=== PATIENT | male | born 1995 | race Caucasian/White ===

== ENCOUNTER 2017-01-28 23:43 | Emergency (ER) | payer OTHER ==
[2017-01-28 23:51] VITALS: BP 136/82; PULSE 89; RESP 20; TEMP 99
[2017-01-29] MEDS ORDERED: IBUPROFEN 800 MG TAB PO STA (00:11)
--- NOTE | 2017-01-29 00:30 | ED ---
Skin/Abscess/FB HPI - General Chief complaint: Skin/Abscess/Foreign Body Stated complaint: hand pain Time Seen by Provider: 01/28/17 23:55 Source: patient, RN notes reviewed, old records reviewed Mode of arrival: ambulatory Limitations: no limitations - History of Present Illness Initial comments: Patient is a 21 year old male with chief complaint of a area of redness on his hand for 2 days. Patient reports on Sunday he had a pieve of fiberglass or splinter go into the dorsum of the left hand. He states that over the pst day it became red and warm. Patient states he went to [facility] and was treated today with keflex. He took 2 of the antibiotics today so far. He was told if the redness spread, that he needed to return to be seen. Patient states over the past few hours the redness extended one centimeter from the original line. Patient states he wanted a seocnd opionion. Denies any fever or chills. He denies decreased range of motiong of the hand. Patient is right handed. - Related Data Previous Rx's Medication Instructions Recorded Ibuprofen [Motrin] 800 mg PO Q6HR PRN #20 tab 01/29/17 Allergies Allergy/AdvReac Type Severity Reaction Status Date / Time No Known Allergies Allergy Verified 01/28/17 23:51 Review of Systems ROS Statement: Those systems with pertinent positive or pertinent negative responses have been documented in the HPI. ROS Other: All systems not noted in ROS Statement are negative. Past Medical History Past Medical History: No Reported History History of Any Multi-Drug Resistant Organisms: None Reported Past Surgical History: Adenoidectomy, Tonsillectomy Past Psychological History: No Psychological Hx Reported Smoking Status: Never smoker Past Alcohol Use History: None Reported Past Drug Use History: None Reported General Exam - General Exam Comments Initial Comments: Well appearing 21 year old male, no distress. Limitations: no limitations General appearance: alert, in no apparent distress Head exam: Present: atraumatic, normocephalic, normal inspection Eye exam: Present: normal appearance, PERRL, EOMI. Absent: scleral icterus, conjunctival injection, periorbital swelling ENT exam: Present: normal exam, mucous membranes moist Neck exam: Present: normal inspection. Absent: tenderness, meningismus, lymphadenopathy Respiratory exam: Present: normal lung sounds bilaterally. Absent: respiratory distress, wheezes, rales, rhonchi, stridor Cardiovascular Exam: Present: regular rate, normal rhythm, normal heart sounds. Absent: systolic murmur, diastolic murmur, rubs, gallop, clicks GI/Abdominal exam: Present: soft, normal bowel sounds. Absent: distended, tenderness, guarding, rebound, rigid Extremities exam: Present: normal inspection, full ROM, normal capillary refill. Absent: tenderness, pedal edema, joint swelling, calf tenderness Left Forearm Wrist exam: Present: normal inspection, full ROM Hand Wrist exam: Present: normal inspection, full ROM (over area of erythema), tenderness, erythema (4cm circular area of erythema over dorsum of hand. ranges from first to 3rd metacarpal. ) Neuro motor exam: Present: wrist extension intact, thumb opposition intact, thumb IP flexion intact, thumb adduction intact Vascular: Present: normal capillary refill Back exam: Present: normal inspection Neurological exam: Present: alert, oriented X3, CN II-XII intact Psychiatric exam: Present: normal affect, normal mood Skin exam: Present: warm, dry, intact, normal color. Absent: rash Course Vital Signs 01/28/17 23:49 Temperature 99 F Pulse Rate 89 Respiratory 20 Rate Blood Pressure 136/82 O2 Sat by Pulse 98 Oximetry Medical Decision Making - Medical Decision Making Patient is a 21 year old male with chief complaint of a area of redness on his hand for 2 days. Patient reports on Sunday he had a pieve of fiberglass or splinter go into the dorsum of the left hand. He states that over the pst day it became red and warm. Patient states he went to [facility] and was treated today with keflex. He took 2 of the antibiotics today so far. He was told if the redness spread, that he needed to return to be seen. Patient states over the past few hours the redness extended one centimeter from the original line. There is no abscess to be drained, no fver at this time. Patient erythema is slightly over original line. Patient does not meet failed out patient treatment as he has started antibiotics today. Patient will be discharged home and advised to take motrin, elevate exttremity and apply ice over it. Paitnet understands treatment plan and will comply. Disposition Clinical Impression: Cellulitis of left hand Disposition: HOME SELF-CARE Condition: Good Instructions: Cellulitis (ED) Additional Instructions: Continue to monitor the area of redness. Apply ice over it. His complete entire briefly prescribed antibiotic prescription. Return to emergency Department if any alarming signs or symptoms occur. If the spread patient is advised to be reevaluated. Prescriptions: Ibuprofen [Motrin] 800 mg PO Q6HR PRN #20 tab PRN Reason: Pain Referrals: Christina Rees MD [STAFF PHYSICIAN] - 1-2 days Time of Disposition: 00:28
== END 2017-01-29 00:38 | disposition home or self-care (01) ==
LOC: EC 23:43
DX: L03.114 Cellulitis of left upper limb (principal)
CPT/HCPCS: 99283

== ENCOUNTER 2017-02-02 01:05 | Inpatient (IN) | payer OTHER ==
[2017-02-02] MEDS ORDERED: SODIUM CHLORIDE 0.9% 1,000 ML IV STA (01:56)
[2017-02-02 02:47] LABS: Basophils % (A) 1 %; CH 29.4; CHCM 34.6; Eosinophils # (A) 0.2 k/uL (0-0.7); Eosinophils % (A) 4 %; HDW 2.81; HGB 15.6 gm/dL (13.0-17.5); Luc % (Auto) 5; Lymphocytes # (A) 2.5 k/uL (1.0-4.8); Lymphocytes % (A) 37 %; MCH 29.6 pg (25.0-35.0); MCHC 34.8 g/dL (31.0-37.0); MCV 85.2 fL (80.0-100.0); Mean Platelet Volume 7.3; Monocytes # (A) 0.6 k/uL (0-1.0); Monocytes % (A) 8 %; Neutrophils # (A) 3.1 k/uL (1.3-7.7); Neutrophils % (A) 46 %; RBC 5.28 m/uL (4.30-5.90); RDW 12.1 % (11.5-15.5); WBC 6.7 k/uL (3.8-10.6); WBC (Perox) 6.89
[2017-02-02 03:00] LABS: ALT 37 U/L (21-72); AST 16 U/L (17-59); Alkaline Phosphatase 97 U/L (38-126); Anion Gap 10 mmol/L; Blood Urea Nitrogen 20 mg/dL (9-20); C Reactive Protein 16.8 mg/L (<10.0); Calcium 9.3 mg/dL (8.4-10.2); Carbon Dioxide 28 mmol/L (22-30); Chloride 105 mmol/L (98-107); Glucose 92 mg/dL (74-99); Non-African American GFR(MDRD) >60 (>60 ml/min/1.73 sqM); Potassium 4.5 mmol/L (3.5-5.1); Sodium 143 mmol/L (137-145); Total Bilirubin 0.4 mg/dL (0.2-1.3); Total Protein 6.9 g/dL (6.3-8.2)
[2017-02-02] MEDS ORDERED: ACETAMINOPHEN TAB 325 MG TAB PO PRN (03:23)
[2017-02-02] MEDS ORDERED: NALOXONE 0.4 MG/ML 1 ML VIAL IV PRN (03:23)
[2017-02-02] MEDS ORDERED: ONDANSETRON 4 MG/2 ML VIAL IVP PRN (03:23)
--- NOTE | 2017-02-02 03:28 | ED ---
Upper Extremity HPI - General Source: patient, RN notes reviewed, old records reviewed Mode of arrival: ambulatory Limitations: no limitations <Ashleigh Mata - Last Filed: 02/02/17 03:25> <Nicholas Llanos - Last Filed: 02/02/17 08:27> - General Chief Complaint: Extremity Injury, Upper Stated Complaint: skin infection Time Seen by Provider: 02/02/17 01:18 - History of Present Illness Initial Comments: 21-year-old male presents emergency Department what appears to be a left hand cellulitis. Patient originally started with this infection last Sunday when he got a microfibrillar in his hand. The patient has been on Keflex since last Sunday however he is increased redness and swelling to the area. Patient has been to [facility] 2-3 times for this since the original injury. Patient went tonight he was given Vanco and Zosyn around 10:00 02/01/2017. They did end up discharging him and told him to return if it worsened. He states he continues to have increased swelling and redness to the hand so she was concerned. Patient states that it seems to be getting worse than it was even a day ago. Patient states that he has no other symptoms that this started. Patient denies any fever.Patient denies any recent fever, chills, shortness of breath, chest pain, back pain, abdominal pain, nausea vomiting, numbness or tingling, dysuria or hematuria, constipation or diarrhea, headaches or visual changes, or any other current symptoms. (Ashleigh Mata) - Related Data Home Medications Medication Instructions Recorded Confirmed Amoxic-Pot Clav 875-125Mg 1 tab PO Q12HR 02/02/17 02/02/17 [Augmentin 875-125] Clindamycin [Cleocin] 150 mg PO Q8HR 02/02/17 02/02/17 Previous Rx's Medication Instructions Recorded Ibuprofen [Motrin] 800 mg PO Q6HR PRN #20 tab 01/29/17 Allergies Allergy/AdvReac Type Severity Reaction Status Date / Time No Known Allergies Allergy Verified 02/02/17 07:55 Review of Systems ROS Other: All systems not noted in ROS Statement are negative. <Ashleigh Mata - Last Filed: 02/02/17 03:25> ROS Other: All systems not noted in ROS Statement are negative. <Nicholas Llanos - Last Filed: 02/02/17 08:27> ROS Statement: Those systems with pertinent positive or pertinent negative responses have been documented in the HPI. Past Medical History Past Medical History: No Reported History History of Any Multi-Drug Resistant Organisms: None Reported Past Surgical History: Adenoidectomy, Tonsillectomy Past Psychological History: No Psychological Hx Reported Smoking Status: Never smoker Past Alcohol Use History: None Reported Past Drug Use History: None Reported <Ashleigh Mata - Last Filed: 02/02/17 03:25> General Exam Limitations: no limitations <Ashleigh Mata - Last Filed: 02/02/17 03:25> <Nicholas Llanos - Last Filed: 02/02/17 08:27> - General Exam Comments Initial Comments: General: The patient is awake and alert, in no distress, and does not appear acutely ill. Neck: The neck is supple, there is no tenderness. Cardiovascular: There is a regular rate and rhythm. No murmur, rub or gallop is appreciated. Respiratory: Lungs are clear to auscultation, respirations are non-labored, breath sounds are equal. No wheezes, stridor, rales, or rhonchi. Musculoskeletal: Sensation intact with 2+ pulses. Left upper joint. Patient has swelling to the left hand with associated erythema. Patient does appear to have an area of abscess that does appear to have been drinking and to the left hand as well. There does appear to be some redness extending up to the left wrist. Patient's range of motion of the left elbow. Neurological: CN II-XII intact, There are no obvious motor or sensory deficits. Coordination appears grossly intact. Speech is normal. Skin: Skin is warm and dry and no rashes or lesions are noted. Psychiatric: Normal mood and affect. (Ashleigh Mata) Medical Decision Making - Lab Data Result diagrams: 02/02/17 02:34 02/02/17 02:34 <Ashleigh Mata - Last Filed: 02/02/17 03:25> - Lab Data Result diagrams: 02/02/17 02:34 02/02/17 02:34 <Nicholas Llanos - Last Filed: 02/02/17 08:27> - Medical Decision Making 21-year-old male presents for appears the left hand sialitis that has failed out patient treatment. At this time patient was not given diuretics due to his recent dose at 10:00. We will start him on Vanco for pharmacy to dose. We discussed Motrin Tylenol for pain control. We did discuss that he will be admitted to on-call physician with Dr. Licona The patient isn't given the plan all questions have been answered. (Ashleigh aMta) I saw this patient in conjunction with the physician assistant terminal manager. I performed independent history and physical exam. Agree with case management. (Nicholas Llanos) - Lab Data Lab Results 02/02/17 02/02/17 02/02/17 Range/Units 02:34 02:34 02:34 WBC 6.7 (3.8-10.6) k/uL RBC 5.28 (4.30-5.90) m/uL Hgb 15.6 (13.0-17.5) gm/dL Hct 45.0 (39.0-53.0) % MCV 85.2 (80.0-100.0) fL MCH 29.6 (25.0-35.0) pg MCHC 34.8 (31.0-37.0) g/dL RDW 12.1 (11.5-15.5) % Plt Count 198 (150-450) k/uL Neutrophils % 46 % Lymphocytes % 37 % Monocytes % 8 % Eosinophils % 4 % Basophils % 1 % Neutrophils # 3.1 (1.3-7.7) k/uL Lymphocytes # 2.5 (1.0-4.8) k/uL Monocytes # 0.6 (0-1.0) k/uL Eosinophils # 0.2 (0-0.7) k/uL Basophils # 0.0 (0-0.2) k/uL Sodium 143 (137-145) mmol/L Potassium 4.5 (3.5-5.1) mmol/L Chloride 105 (98-107) mmol/L Carbon Dioxide 28 (22-30) mmol/L Anion Gap 10 mmol/L BUN 20 (9-20) mg/dL Creatinine 0.70 (0.66-1.25) mg/dL Est GFR (MDRD) Af Amer >60 (>60 ml/min/1.73 sqM) Est GFR (MDRD) Non-Af >60 (>60 ml/min/1.73 sqM) Glucose 92 (74-99) mg/dL Plasma Lactic Acid Costa 1.0 (0.7-2.0) mmol/L Calcium 9.3 (8.4-10.2) mg/dL Total Bilirubin 0.4 (0.2-1.3) mg/dL AST 16 L (17-59) U/L ALT 37 (21-72) U/L Alkaline Phosphatase 97 (38-126) U/L C-Reactive Protein 16.8 H (<10.0) mg/L Total Protein 6.9 (6.3-8.2) g/dL Albumin 4.0 (3.5-5.0) g/dL Disposition Time of Disposition: 03:28 Decision Date: 02/02/17 Decision Time: 03:28 <Ashleigh Mata - Last Filed: 02/02/17 03:25> <Nicholas Llanos - Last Filed: 02/02/17 08:27> Clinical Impression: Cellulitis of left hand, Failure of outpatient treatment Disposition: ADMITTED IP TO THIS HOSP Condition: Stable
[2017-02-02] MEDS ORDERED: IV VANCOMYCIN PER PHARMACY 1 EACH MISC MISCELLANE PRN (03:38)
[2017-02-02] MEDS: IBUPROFEN 400 MG TAB PO PRN ×3 (03:43→19:29)
[2017-02-02] MEDS ORDERED: VANCOMYCIN 1,500 MG in SODIUM CHLORIDE 0.9% 250 ML IVPB ONE (04:00)
[2017-02-02 04:23] VITALS: BMI 26.7
--- NOTE | 2017-02-02 04:26 | XR ---
EXAM: XR Left Hand Complete, 3 or More Views. CLINICAL HISTORY: Reason: Pain TECHNIQUE: Frontal, lateral and oblique views of the left hand. COMPARISON: No relevant prior studies available. FINDINGS: Bones/joints: No acute fracture. No dislocation. Soft tissues: Suspected soft tissue swelling. No radiopaque foreign body. IMPRESSION: Suspected soft tissue swelling
[2017-02-02] MEDS: SODIUM CHLORIDE 0.9% 1,000 ML IV SCH ×3 (04:43→20:44)
[2017-02-02] MEDS: VANCOMYCIN 1,500 MG in SODIUM CHLORIDE 0.9% 250 ML IVPB SCH ×2 (12:31→20:43)
--- NOTE | 2017-02-02 13:13 | HP ---
DATE OF ADMISSION: Patient is a 21-year-old pleasant gentleman who came in left hand cellulitis, was originally with Keflex followed by clindamycin. Patient was seen twice in other ER and patient at one point of time had a drainage of the abscess in the left hand. Patient's left hand is significantly swollen with redness and there is ( ) of infection. No significant abscess is appreciable on the clinical exam. Patient's redness and localized of temperature did improve apparently as per the patient. Patient does not have any left upper limb, lymphadenopathy. Patient is started vancomycin. Apparently his symptoms started about a week ago after he injured his hand with a sharp object, which he removed it by himself, which happened at work. Patient denied any IV drug use. REVIEW OF SYSTEMS: CONSTITUTIONAL: No fever, no malaise, no fatigue. HEENT: No recent visual problems or hearing problems. Denied any sore throat. CARDIOVASCULAR: No chest pain, orthopnea, PND, no palpitations, no syncope. PULMONARY: No shortness of breath, no cough, no hemoptysis. GASTROINTESTINAL: No diarrhea, no nausea, no vomiting, no abdominal pain. Normoactive bowel sounds. NEUROLOGICAL: No headaches, no weakness, no numbness. HEMATOLOGICAL: Denies any bleeding or petechiae. GENITOURINARY: Denies any burning micturition, frequency, or urgency. MUSCULOSKELETAL/RHEUMATOLOGICAL: As described in HPI. ENDOCRINE: Denies any polyuria or polydipsia. The rest of the 14 point review of systems is negative. Home medications include: 1. Augmentin. 2. Clindamycin. 3. Ibuprofen. ALLERGIES: No known drug allergies. PAST MEDICAL HISTORY: Adenoidectomy, tonsillectomy. SOCIAL HISTORY: Denied any smoking, alcohol abuse or drug abuse. FAMILY HISTORY: Denied any family history of hypertension or diabetes mellitus in the family. On physical examination, temperature 97.4, pulse of 70, respiratory rate of 16, blood pressure is 101/51, saturating at 99% on room air. GENERAL: The patient is alert and oriented x3, not in any acute distress. Well developed, well nourished. HEENT: Pupils are round and equally reacting to light. EOMI. No scleral icterus. No conjunctival pallor. Normocephalic, atraumatic. No pharyngeal erythema. No thyromegaly. CARDIOVASCULAR: S1 and S2 present. No murmurs, rubs, or gallops. PULMONARY: Chest is clear to auscultation, no wheezing or crackles. ABDOMEN: Soft, nontender, nondistended, normoactive bowel sounds. No palpable organomegaly. MUSCULOSKELETAL: Patient's left hand is completely swollen. There is a ( ) of infection with wound with recent abscess that was drained and another completely healed scratch from the dorsum of the left hand. There is a little bit of redness and localized of temperature completely swollen left hand and patient unable to flex his fingers completely because of the swelling. EXTREMITIES: No cyanosis, clubbing, or pedal edema. NEUROLOGICAL: Gross neurological examination did not reveal any focal deficits. SKIN: No rashes. LABORATORY DATA: CBC, CMP, essentially within normal limits. Lactic acid is 1.0. ASSESSMENT AND PLAN: Left hand cellulitis with recent abscess that was drained. Wound cultures were obtained at the other hospital. Will obtained those wound cultures. Will continue with vancomycin. Patient is on ibuprofen for inflammation, which will be continued. Patient is on IV fluids at 100 mL per hour, which will be continued.
[2017-02-02 15:58] VITALS: RESP 18
[2017-02-03] MEDS ORDERED: VANCOMYCIN TROUGH DUE 1 EACH MISC MISCELLANE ONE (04:00)
[2017-02-03 04:51] LABS: ALT 35 U/L (21-72); AST 18 U/L (17-59); Alkaline Phosphatase 93 U/L (38-126); Anion Gap 8 mmol/L; Blood Urea Nitrogen 14 mg/dL (9-20); Calcium 9.3 mg/dL (8.4-10.2); Carbon Dioxide 28 mmol/L (22-30); Chloride 106 mmol/L (98-107); Glucose 102 mg/dL (74-99); Non-African American GFR(MDRD) >60 (>60 ml/min/1.73 sqM); Sodium 142 mmol/L (137-145); Total Bilirubin 0.4 mg/dL (0.2-1.3); Total Protein 6.7 g/dL (6.3-8.2)
[2017-02-03 04:52] LABS: Basophils # (A) 0.1 k/uL (0-0.2); Basophils % (A) 1 %; CH 29.1; CHCM 34.1; Eosinophils # (A) 0.2 k/uL (0-0.7); Eosinophils % (A) 4 %; HCT 46.4 % (39.0-53.0); HDW 2.82; HGB 15.9 gm/dL (13.0-17.5); Luc # (Auto) 0.24; Luc % (Auto) 4; Lymphocytes # (A) 2.5 k/uL (1.0-4.8); Lymphocytes % (A) 41 %; MCH 29.4 pg (25.0-35.0); MCHC 34.3 g/dL (31.0-37.0); MCV 85.6 fL (80.0-100.0); Mean Platelet Volume 7.1; Monocytes # (A) 0.4 k/uL (0-1.0); Monocytes % (A) 7 %; Neutrophils # (A) 2.7 k/uL (1.3-7.7); Neutrophils % (A) 44 %; RBC 5.42 m/uL (4.30-5.90); RDW 12.1 % (11.5-15.5); WBC (Perox) 6.07
[2017-02-03] MEDS: VANCOMYCIN 1,500 MG in SODIUM CHLORIDE 0.9% 250 ML IVPB SCH (04:55)
[2017-02-03] MEDS: IBUPROFEN 400 MG TAB PO PRN ×2 (05:07→11:55)
[2017-02-03 08:21] VITALS: BP 119/82; PULSE 69; TEMP 98
[2017-02-03] MEDS: SODIUM CHLORIDE 0.9% 1,000 ML IV SCH (11:08)
[2017-02-03] MEDS ORDERED: VANCOMYCIN 1,750 MG in SODIUM CHLORIDE 0.9% 250 ML IVPB SCH (13:00)
--- NOTE | 2017-02-03 13:09 | DS ---
DATE OF ADMISSION: 02/02/2017 DATE OF DISCHARGE: The patient is a 21-year-old who came in with left hand cellulitis and patient initially had an abscess, which was drained. Patient's cellulitis and swelling is coming down and I do have the cultures and studies for the patient now, which is showing MRSA and sensitive to Bactrim and patient will be discharged on 10 more days of Bactrim. Patient will be referred to Dr. Maeve Romero. The patient was seen and examined on the day of discharge. Vitals are stable. Significant improvement in left hand swelling. Redness improved a little bit. Patient has a little bit of serous drainage coming out of it. The patient apparently picks at the wound for which we probably will use gauze or a dry dressing during nighttime so that he does not pick on the area of laceration in the left dorsum of the hand. FINAL DIAGNOSES: Left hand cellulitis and recently drained abscess with methicillin-resistant Staphylococcus aureus improved with IV vancomycin. Patient will be discharged on oral Bactrim. Patient will continue ibuprofen.
== END 2017-02-03 14:50 | disposition home or self-care (01) | DRG 603 ==
LOC: EC 01:05 → 5MS5E 03:28
PROVIDERS: ADMIT Internal Medicine; ATTEND Internal Medicine
DX: L03.114 Cellulitis of left upper limb (principal); L02.512 Cutaneous abscess of left hand; B95.62 Methicillin resistant Staphylococcus aureus infection as the cause of diseases classified elsewhere
CPT/HCPCS: 36415; 80053; 80202; 83605; 85025; 86140; 87040; 96360; 99284; 99285

== ENCOUNTER 2017-02-14 11:36 | Emergency (ER) | payer OTHER ==
[2017-02-14 15:33] VITALS: BP 133/73; PULSE 70; RESP 18; TEMP 99.2
--- NOTE | 2017-02-14 15:37 | ED ---
General Adult HPI - General Chief complaint: Nausea/Vomiting/Diarrhea Stated complaint: flu like symptoms Time Seen by Provider: 02/14/17 15:26 Source: patient, RN notes reviewed Mode of arrival: ambulatory Limitations: no limitations - History of Present Illness Initial comments: Patient is 21-year-old male who presents emergency room today with a chief complaint of symptoms of nausea vomiting that started last night. States started after he ate something. States other people in the house that had similar symptoms. He denies any diarrhea. Denies abdominal pain. States had nausea today no vomiting. Denies any other complaints or associated symptoms. Patient denies any recent fever, chills, shortness of breath, chest pain, back pain, numbness or tingling, dysuria or hematuria, constipation or diarrhea, headaches or visual changes, or any other complaints. - Related Data Previous Rx's Medication Instructions Recorded Ibuprofen [Motrin] 800 mg PO Q6HR PRN #20 tab 01/29/17 Sulfamethox-Tmp 800-160Mg [Bactrim 1 tab PO Q12HR #20 tab 02/03/17 DS 800-160 mg] Ondansetron Odt [Zofran ODT] 4 mg PO Q8HR PRN #20 tab 02/14/17 Allergies Allergy/AdvReac Type Severity Reaction Status Date / Time No Known Allergies Allergy Verified 02/14/17 11:55 Review of Systems ROS Statement: Those systems with pertinent positive or pertinent negative responses have been documented in the HPI. ROS Other: All systems not noted in ROS Statement are negative. Past Medical History Past Medical History: No Reported History History of Any Multi-Drug Resistant Organisms: None Reported Past Surgical History: Adenoidectomy, Tonsillectomy Past Psychological History: No Psychological Hx Reported Smoking Status: Never smoker Past Alcohol Use History: None Reported Past Drug Use History: None Reported - Past Family History Mother Family Medical History: Diabetes Mellitus, Hypertension Father Family Medical History: Diabetes Mellitus, Hypertension General Exam - General Exam Comments Initial Comments: General: The patient is awake and alert, in no distress, and does not appear acutely ill. Eye: Pupils are equal, round and reactive to light, extra-ocular movements are intact. No nystagmus. There is normal conjunctiva bilaterally. No signs of icterus. Ears, nose, mouth and throat: There are moist mucous membranes and no oral lesions. Neck: The neck is supple, there is no tenderness or JVD. Cardiovascular: There is a regular rate and rhythm. No murmur, rub or gallop is appreciated. Respiratory: Lungs are clear to auscultation, respirations are non-labored, breath sounds are equal. No wheezes, stridor, rales, or rhonchi. Gastrointestinal: [Soft, non-distended, non-tender abdomen without masses or organomegaly noted. There is no rebound or guarding present. No CVA tenderness. Bowel sounds are unremarkable.] Musculoskeletal: Normal ROM, no tenderness. Strength 5/5. Sensation intact. Pulses equal bilaterally 2+. Neurological: A&O x 3. CN II-XII intact, There are no obvious motor or sensory deficits. Coordination appears grossly intact. Speech is normal. Skin: Skin is warm and dry and no rashes or lesions are noted. Psychiatric: Cooperative, appropriate mood & affect, normal judgment. Limitations: no limitations Course Vital Signs 02/14/17 11:53 Temperature 97.5 F L Pulse Rate 96 Respiratory 20 Rate Blood Pressure 127/80 O2 Sat by Pulse 98 Oximetry Medical Decision Making - Medical Decision Making Patient will be given starter pack of Zofran here the emergency room. Advised to increase oral fluids. Advised return if there is any abdominal pain or increase worsen her symptoms. Disposition Clinical Impression: Nausea & vomiting Disposition: HOME SELF-CARE Condition: Good Instructions: Acute Nausea and Vomiting (ED) Additional Instructions: Please use medication as discussed. Please follow-up with family doctor in the next 2 days of symptoms have not improved. Please return to emergency room if the symptoms increase or worsen or for any other concerns. Prescriptions: Ondansetron Odt [Zofran ODT] 4 mg PO Q8HR PRN #20 tab PRN Reason: Nausea Time of Disposition: 15:36
[2017-02-14] MEDS: ONDANSETRON 4 MG ODT STARTER PACK 2 TAB BTL PO STA (15:41)
== END 2017-02-14 15:47 | disposition home or self-care (01) ==
LOC: EC 11:36
DX: R11.2 Nausea with vomiting, unspecified (principal)
CPT/HCPCS: 99283; S0119

== ENCOUNTER 2017-02-16 23:21 | Emergency (ER) | payer OTHER ==
[2017-02-16 23:28] VITALS: RESP 20
[2017-02-16] MEDS ORDERED: SODIUM CHLORIDE 0.9% 1,000 ML IV STA (23:46)
[2017-02-16] MEDS ORDERED: METOCLOPRAMIDE 5 MG/ML 2 ML VIAL IVP STA (23:48)
[2017-02-16] MEDS ORDERED: ACETAMINOPHEN TAB 500 MG TAB PO STA (23:48)
[2017-02-16] MEDS ORDERED: diphenhydrAMINE 50 MG/ML 1 ML VIAL IVP STA (23:49)
[2017-02-17 00:07] LABS: Aty Lym Flag Moderate; CHCM 35.4; HCT 47.1 % (39.0-53.0); HDW 2.76; HGB 16.1 gm/dL (13.0-17.5); MCHC 34.1 g/dL (31.0-37.0); MCV 85.1 fL (80.0-100.0); Mean Platelet Volume 7.6; RBC 5.53 m/uL (4.30-5.90); RDW 12.7 % (11.5-15.5); WBC 3.2 k/uL (3.8-10.6); WBC (Perox) 2.96
--- NOTE | 2017-02-17 00:13 | ED ---
General Adult HPI - General Chief complaint: Nausea/Vomiting/Diarrhea Stated complaint: revisit vomiting/diarrhea Time Seen by Provider: 02/16/17 23:38 Source: patient, RN notes reviewed Mode of arrival: ambulatory Limitations: no limitations - History of Present Illness Initial comments: Patient is a 21-year-old male chief complaint of nausea vomiting diarrhea for the past 4 days. He is also being seen with a roommate with similar symptoms. He reports that he's had continuous diarrhea. Denies any blood in his stools. He reports he's had a mild fever. He states that everybody in the house has similar symptoms. He denies any blood in his vomit. He reports that he's been urinating normally. - Related Data Previous Rx's Medication Instructions Recorded Acetaminophen Tab [Tylenol Tab] 650 mg PO Q6H #20 tablet 02/17/17 Dicyclomine [Bentyl] 10 mg PO TID #15 capsule 02/17/17 Metoclopramide [Reglan] 5 mg PO TID #12 tab 02/17/17 Allergies Allergy/AdvReac Type Severity Reaction Status Date / Time No Known Allergies Allergy Verified 02/16/17 23:28 Review of Systems ROS Statement: Those systems with pertinent positive or pertinent negative responses have been documented in the HPI. ROS Other: All systems not noted in ROS Statement are negative. Past Medical History Past Medical History: No Reported History History of Any Multi-Drug Resistant Organisms: None Reported Past Surgical History: Adenoidectomy, Tonsillectomy Past Psychological History: No Psychological Hx Reported Smoking Status: Never smoker Past Alcohol Use History: None Reported Past Drug Use History: None Reported - Past Family History Mother Family Medical History: Diabetes Mellitus, Hypertension Father Family Medical History: Diabetes Mellitus, Hypertension General Exam - General Exam Comments Initial Comments: Pleasant 21-year-old male. No distress. Limitations: no limitations Head exam: Present: atraumatic, normocephalic, normal inspection Eye exam: Present: normal appearance, PERRL, EOMI. Absent: scleral icterus, conjunctival injection, periorbital swelling ENT exam: Present: normal exam, mucous membranes moist Neck exam: Present: normal inspection. Absent: tenderness, meningismus, lymphadenopathy Respiratory exam: Present: normal lung sounds bilaterally. Absent: respiratory distress, wheezes, rales, rhonchi, stridor Cardiovascular Exam: Present: regular rate, normal rhythm, normal heart sounds. Absent: systolic murmur, diastolic murmur, rubs, gallop, clicks GI/Abdominal exam: Present: soft, normal bowel sounds. Absent: distended, tenderness, guarding, rebound, rigid Extremities exam: Present: normal inspection, full ROM, normal capillary refill. Absent: tenderness, pedal edema, joint swelling, calf tenderness Back exam: Present: normal inspection Neurological exam: Present: alert, oriented X3, CN II-XII intact Psychiatric exam: Present: normal affect, normal mood Skin exam: Present: warm, dry, intact, normal color. Absent: rash Course Vital Signs 02/16/17 02/17/17 23:26 00:45 Temperature 100 F H 98 F Pulse Rate 100 90 Respiratory 20 20 Rate Blood Pressure 139/87 121/78 O2 Sat by Pulse 99 98 Oximetry Medical Decision Making - Medical Decision Making 21 year old male with four days of nausea, vomiting, and diarrhea. Patient labs reviewed and are normal, no abdominal tenderness. Patient given IV fluids and advised to follow up with PCP if symptoms persist. Patient discharged with bentyl, reglan, and tylenol. - Lab Data Result diagrams: 02/16/17 23:53 02/16/17 23:53 Lab Results 02/16/17 02/16/17 Range/Units 23:53 23:53 WBC 3.2 L (3.8-10.6) k/uL RBC 5.53 (4.30-5.90) m/uL Hgb 16.1 (13.0-17.5) gm/dL Hct 47.1 (39.0-53.0) % MCV 85.1 (80.0-100.0) fL MCH 29.0 (25.0-35.0) pg MCHC 34.1 (31.0-37.0) g/dL RDW 12.7 (11.5-15.5) % Plt Count 143 L (150-450) k/uL Neutrophils % 26 % Neutrophils % (Manual) 25.0 % Lymphocytes % 44 % Lymphocytes % (Manual) 64.0 % Monocytes % 18 % Monocytes % (Manual) 10.0 % Eosinophils % 3 % Eosinophils % (Manual) 1.0 % Basophils % 1 % Neutrophils # 0.8 L (1.3-7.7) k/uL Neutrophils # (Manual) 0.8 L (1.3-7.7) k/uL Lymphocytes # 1.4 (1.0-4.8) k/uL Lymphocytes # (Manual) 2.0 (1.0-4.8) k/uL Monocytes # 0.6 (0-1.0) k/uL Monocytes # (Manual) 0.3 (0-1.0) k/uL Eosinophils # 0.1 (0-0.7) k/uL Eosinophils # (Manual) 0.0 (0-0.7) k/uL Basophils # 0.0 (0-0.2) k/uL Nucleated RBCs 0 (0-0) /100 WBC Manual Slide Review Performed Sodium 139 (137-145) mmol/L Potassium 3.8 (3.5-5.1) mmol/L Chloride 102 (98-107) mmol/L Carbon Dioxide 26 (22-30) mmol/L Anion Gap 11 mmol/L BUN 12 (9-20) mg/dL Creatinine 0.70 (0.66-1.25) mg/dL Est GFR (MDRD) Af Amer >60 (>60 ml/min/1.73 sqM) Est GFR (MDRD) Non-Af >60 (>60 ml/min/1.73 sqM) Glucose 90 (74-99) mg/dL Calcium 8.6 (8.4-10.2) mg/dL Disposition Clinical Impression: Gastroenteritis Disposition: HOME SELF-CARE Condition: Good Instructions: Acute Diarrhea (ED), Acute Nausea and Vomiting (ED) Additional Instructions: Patient advised to take medications as directed. Follow-up with a primary care provider if symptoms continue persist. Patient advised to remain in a clear liquid diet for the next 2 days. Wash hands frequently. Return to emergency Department if any alarming signs or symptoms occur. Prescriptions: Acetaminophen Tab [Tylenol Tab] 650 mg PO Q6H #20 tablet Dicyclomine [Bentyl] 10 mg PO TID #15 capsule Metoclopramide [Reglan] 5 mg PO TID #12 tab Referrals: Christina Rees MD [STAFF PHYSICIAN] - 1-2 days Time of Disposition: 00:32
[2017-02-17 00:16] LABS: Anion Gap 11 mmol/L; Blood Urea Nitrogen 12 mg/dL (9-20); Calcium 8.6 mg/dL (8.4-10.2); Carbon Dioxide 26 mmol/L (22-30); Chloride 102 mmol/L (98-107); Glucose 90 mg/dL (74-99); Non-African American GFR(MDRD) >60 (>60 ml/min/1.73 sqM); Potassium 3.8 mmol/L (3.5-5.1); Sodium 139 mmol/L (137-145)
[2017-02-17 00:29] LABS: Add Differential Manual Differential
[2017-02-17 00:33] LABS: Manual Review Performed; Nucleated Red Blood Cells 0 /100 WBC (0-0); Total Cells Counted 100
[2017-02-17 00:46] VITALS: BP 121/78; PULSE 90; TEMP 98
[2017-02-17 03:41] LABS: Basophils % (A) 1 %; Eosinophils # (A) 0.1 k/uL (0-0.7); Eosinophils % (A) 3 %; Luc % (Auto) 9; Lymphocytes # (A) 1.4 k/uL (1.0-4.8); Lymphocytes % (A) 44 %; Monocytes # (A) 0.6 k/uL (0-1.0); Monocytes % (A) 18 %; Neutrophils # (A) 0.8 k/uL (1.3-7.7); Neutrophils % (A) 26 %
== END 2017-02-17 00:46 | disposition home or self-care (01) ==
LOC: EC 23:21
DX: K52.9 Noninfective gastroenteritis and colitis, unspecified (principal)
CPT/HCPCS: 99284; 96374; 96375; 96361; 36415; 80048; 85025; J1200; J2765

== ENCOUNTER 2017-02-23 00:27 | Emergency (ER) | payer OTHER ==
[2017-02-23 00:34] VITALS: BP 133/83; PULSE 96; RESP 18; TEMP 98
[2017-02-23] MEDS ORDERED: diphenhydrAMINE 50 MG CAP PO STA (00:42)
--- NOTE | 2017-02-23 00:46 | ED ---
ENT HPI - General Chief complaint: Dental/Oral Stated complaint: Dental Pain Time Seen by Provider: 02/23/17 00:36 Source: patient, RN notes reviewed, old records reviewed Mode of arrival: ambulatory Limitations: no limitations - History of Present Illness Initial comments: Patient is a 21-year-old male with chief complaint of upper left molar pain after biting on something and his tooth chipped. Patient states that he is currently living at [place] have any. Patient reports that he is just looking for some help with sleep. Patient states that he has not seen a dentist at this time. He denies any fever or chills or any other associated symptoms. Patient reports that he is up-to-date on vaccinations. Plan is for the dental clinic. - Related Data Home Medications Medication Instructions Recorded Confirmed No Known Home Medications [No 02/23/17 02/23/17 Known Home Medications] Allergies Allergy/AdvReac Type Severity Reaction Status Date / Time No Known Allergies Allergy Verified 02/23/17 00:34 Review of Systems ROS Statement: Those systems with pertinent positive or pertinent negative responses have been documented in the HPI. ROS Other: All systems not noted in ROS Statement are negative. Past Medical History Past Medical History: No Reported History History of Any Multi-Drug Resistant Organisms: None Reported Past Surgical History: Adenoidectomy, Tonsillectomy Past Psychological History: No Psychological Hx Reported Smoking Status: Never smoker Past Alcohol Use History: None Reported Past Drug Use History: None Reported - Past Family History Mother Family Medical History: Diabetes Mellitus, Hypertension Father Family Medical History: Diabetes Mellitus, Hypertension General Exam - General Exam Comments Initial Comments: Well-appearing 21-year-old male. No distress. Limitations: no limitations General appearance: alert, in no apparent distress Head exam: Present: atraumatic, normocephalic, normal inspection Eye exam: Present: normal appearance, PERRL, EOMI. Absent: scleral icterus, conjunctival injection, periorbital swelling ENT exam: Present: normal exam, mucous membranes moist Neck exam: Present: normal inspection. Absent: tenderness, meningismus, lymphadenopathy Respiratory exam: Present: normal lung sounds bilaterally. Absent: respiratory distress, wheezes, rales, rhonchi, stridor Cardiovascular Exam: Present: regular rate, normal rhythm, normal heart sounds. Absent: systolic murmur, diastolic murmur, rubs, gallop, clicks GI/Abdominal exam: Present: soft, normal bowel sounds. Absent: distended, tenderness, guarding, rebound, rigid Extremities exam: Present: normal inspection, full ROM, normal capillary refill. Absent: tenderness, pedal edema, joint swelling, calf tenderness Back exam: Present: normal inspection Neurological exam: Present: alert, oriented X3, CN II-XII intact Psychiatric exam: Present: normal affect, normal mood Skin exam: Present: warm, dry, intact, normal color. Absent: rash Course Vital Signs 02/23/17 00:32 Temperature 98.0 F Pulse Rate 96 Respiratory 18 Rate Blood Pressure 133/83 O2 Sat by Pulse 98 Oximetry Medical Decision Making - Medical Decision Making Patient is 21-year-old male chief complaint of right upper tooth pain. Patient is from amino acid analysis not wanting pain medication. Patient does have a chipped an exposed nerve root over tooth #14. Discussed that he needs to follow -up with dental clinic. Patient was given Benadryl emergency department. I discussed that he should continue Motrin Tylenol for pain. Disposition Clinical Impression: Pain, dental Disposition: HOME SELF-CARE Condition: Good Instructions: Toothache (ED) Additional Instructions: Continue to take Motrin Tylenol. Patient did use Benadryl as needed to help sleep. Return to emergency department if any alarming signs or symptoms occur. [facility] [place] [address] [phone] (existing clients only) For new clients: [phone] 1st consult: $50 (includes Xrays) Usually 30% less then private dentist for visits after. [employer] Have to pay $50 for Xrays anmd rest is covered. [phone] Referrals: Toñito eNss DO [Primary Care Provider] - 1-2 days Time of Disposition: 00:46
== END 2017-02-23 00:54 | disposition home or self-care (01) ==
LOC: EC 00:27
DX: K08.89 Other specified disorders of teeth and supporting structures (principal)
CPT/HCPCS: 99283

== ENCOUNTER 2019-10-14 21:21 | Emergency (ER) | payer OTHER ==
[2019-10-14 21:32] VITALS: RESP 18; TEMP 98.4
[2019-10-14] MEDS ORDERED: DIAZEPAM 5 MG/ML 2 ML INJ IVP STA (22:02)
--- NOTE | 2019-10-14 22:51 | XR ---
EXAMINATION TYPE: XR lumbar spine 2 or 3V DATE OF EXAM: 10/14/2019 COMPARISON: NONE HISTORY: Back pain TECHNIQUE: 3 views FINDINGS: Lumbar vertebra have normal spacing and alignment. Posterior elements are intact. Sacroilia c joints appear normal. There is no evidence for fracture. IMPRESSION: Negative lumbar spine exam. No fracture seen.
--- NOTE | 2019-10-14 23:05 | ED ---
Back Pain HPI - General Chief Complaint: Back Pain/Injury Stated Complaint: Back Pain Time Seen by Provider: 10/14/19 21:42 Source: patient - History of Present Illness Initial Comments: 24yo male presents today for chief complaint of low back pain. Patient states 2 days ago he was lifting a lot of heavy things such as stoves. He states he has not noticed any specific moment in time when he felt a pop and pain in his eulalia. Patient states that he woke up the next morning with severe pain of the bilateral lower back. Denies any radiation down the leg. Patient states that the pain worsened today. Patient states it has been like over the lower back. Again denies any radiation. Patient denies any loss of bowel bladder control urinary retention loss of sensation or weakness of the lower extremities he states the pain increases when he ambulates. Patient states he had normal bowel movement today is having normal erectile function. Patient denies any IVDU, fever, cancer denies any falls or direct trauma to back. Patient states pain was bad that he called EMS to come to ER for pain control. - Related Data Home Medications Medication Instructions Recorded Confirmed Ibuprofen [Motrin Ib] 1,000 mg PO BID PRN 10/14/19 10/14/19 Previous Rx's Medication Instructions Recorded Cyclobenzaprine [Flexeril] 10 mg PO TID PRN 7 Days #21 tab 10/14/19 Ibuprofen 800 mg PO Q8H PRN 7 Days #21 tablet 10/14/19 Allergies Allergy/AdvReac Type Severity Reaction Status Date / Time No Known Allergies Allergy Verified 10/14/19 22:32 Review of Systems ROS Statement: Those systems with pertinent positive or pertinent negative responses have been documented in the HPI. ROS Other: All systems not noted in ROS Statement are negative. Past Medical History Past Medical History: No Reported History History of Any Multi-Drug Resistant Organisms: None Reported Past Surgical History: Adenoidectomy, Tonsillectomy Past Psychological History: No Psychological Hx Reported Smoking Status: Never smoker Past Alcohol Use History: None Reported Past Drug Use History: None Reported - Past Family History Mother Family Medical History: Diabetes Mellitus, Hypertension Father Family Medical History: Diabetes Mellitus, Hypertension General Exam - General Exam Comments Initial Comments: General: The patient is awake and alert, in no distress, and does not appear acutely ill. Eye: Pupils are equal, round and reactive to light, extra-ocular movements are intact. No nystagmus. There is normal conjunctiva bilaterally. No signs of icterus. Ears, nose, mouth and throat: There are moist mucous membranes and no oral lesions. Neck: The neck is supple, there is no tenderness or JVD. Cardiovascular: There is a regular rate and rhythm. No murmur, rub or gallop is appreciated. Respiratory: Lungs are clear to auscultation, respirations are non-labored, breath sounds are equal. No wheezes, stridor, rales, or rhonchi. Gastrointestinal: Soft, non-distended, non-tender abdomen without masses or organomegaly noted. There is no rebound or guarding present. Musculoskeletal: Normal inspection of the cervical thoracic and lumbar spine. Patient has band like pain both midline and paraspinal over the lumbar spine. Most over the musculature with palpable tension/spsms with movement. Normal ROM, of the LE b/l. (-) SLR b/l. Strength 5/5 of the LE b/l equal. Sensation intact of the LE b/l equal, refused rectal exam. DP pulses equal bilaterally 2+. Neurological: A&O x 3. CN II-XII intact grossly, There are no obvious motor or sensory deficits. Coordination appears grossly intact. Speech is normal. Skin: Skin is warm and dry and no rashes or lesions are noted. Psychiatric: Cooperative, appropriate mood & affect, normal judgment. Course Vital Signs 10/14/19 10/15/19 21:29 00:30 Temperature 98.4 F Pulse Rate 59 L 78 Respiratory 18 18 Rate Blood Pressure 131/80 122/69 O2 Sat by Pulse 96 97 Oximetry Medical Decision Making - Medical Decision Making Well-appearing 24-year-old male presenting for low back pain. After lifting heavy objects. Bandlike over the lumbar spine. Plain films negative for osseous process. Patient has no radicular symptoms. Negative straight leg raise. No clinical findings or history consistent with cauda equina patient refused rectal examination however despite discussion of importance. Patient symptoms lessened by valium/morphine. Patient nauseated from fentanyl earlier was administered Zofran. Patient physical exam findings consistent with low back strain vs small herniation with no cause of radiular symptoms. Patinet will be treated with outpatient flexeril, NSAIDs. PCP f/u. Return parameters were discussed at length and patient wsa discharged with improved symptoms> Case discussed with attending provider. Disposition Clinical Impression: Low back pain, Low back strain Disposition: HOME SELF-CARE Condition: Good Instructions (If sedation given, give patient instructions): Low Back Strain (ED) Additional Instructions: Please use medication as discussed. Please follow-up with family doctor in the next 24-48 hours. Please return to emergency room if the symptoms increase or worsen or for any other concerns--IMMEDIATE RETURN FOR LOSS OF BOWEL BLADDER CONTROL, URINE RETENTION, LOSS OF SENSATION OF LOWER EXTREMITIES, ERECTILE DYSFUNCTION, LEG WEAKNESS as discussed in detail. Prescriptions: Cyclobenzaprine [Flexeril] 10 mg PO TID PRN 7 Days #21 tab PRN Reason: Muscle Spasm Ibuprofen 800 mg PO Q8H PRN 7 Days #21 tablet PRN Reason: Pain Is patient prescribed a controlled substance at d/c from ED?: No Referrals: Toñito Ness DO [Primary Care Provider] - 1-2 days Time of Disposition: 23:27
[2019-10-14] MEDS ORDERED: ONDANSETRON 4 MG/2 ML VIAL IVP STA (23:11)
[2019-10-14] MEDS ORDERED: ACET/COD 300 MG/30 MG STARTER PACK 6 TAB BTL PO STA (23:29)
[2019-10-15] MEDS ORDERED: MORPHINE SULFATE 4 MG/ML SYRINGE IVP STA (00:15)
[2019-10-15 00:34] VITALS: BP 122/69; PULSE 78
== END 2019-10-15 00:30 | disposition home or self-care (01) ==
LOC: EC 21:21
DX: S39.012A Strain of muscle, fascia and tendon of lower back, initial encounter (principal); R11.0 Nausea; X50.0XXA Overexertion from strenuous movement or load, initial encounter
CPT/HCPCS: 72100; 99284; 96374; 96375 ×2; J2270; J3360; J2405